=== PATIENT | female | born 1985 | race Caucasian/White ===

== ENCOUNTER 2022-05-05 13:34 | Outpatient (CLI) | payer BC | END 2022-05-05 13:35 | disposition home or self-care (01) | LOC: CSHMRI 13:34 | PROVIDERS: ATTEND Nurse Practitioner Family | DX: M54.10 Radiculopathy, site unspecified (principal); M47.812 Spondylosis without myelopathy or radiculopathy, cervical region; M48.02 Spinal stenosis, cervical region | CPT/HCPCS: 72141 ==